=== PATIENT | female | born 1955 | race Caucasian/White ===

== ENCOUNTER → 2017-01-09 | Outpatient (CLI) | payer BC | LOC: BMCIMAGING 09:58 | PROVIDERS: ATTEND Family Medicine | DX: M79.661 Pain in right lower leg (principal) ==

== ENCOUNTER → 2017-06-29 | Outpatient (CLI) | payer BC | LOC: FIMAGING 13:55 | PROVIDERS: ATTEND Family Medicine | DX: Z12.31 Encounter for screening mammogram for malignant neoplasm of breast (principal) | CPT/HCPCS: G0202 ==

== ENCOUNTER → 2018-01-21 | Outpatient (CLI) | payer BC ==
[~2018-01-21] MED LIST: IOPAMIDOL (ISOVUE-300) 100 ML BTL ONE
== END ==
LOC: FIMAGING 12:02
PROVIDERS: ATTEND Registered Nurse
DX: R10.11 Right upper quadrant pain (principal); R93.49 Abnormal radiologic findings on diagnostic imaging of other urinary organs
CPT/HCPCS: Q9967

== ENCOUNTER → 2018-02-03 | Outpatient (CLI) | payer BC | LOC: CIMAGING 12:30 | PROVIDERS: ATTEND Registered Nurse | DX: N88.8 Other specified noninflammatory disorders of cervix uteri (principal); Z90.711 Acquired absence of uterus with remaining cervical stump; Z79.890 Hormone replacement therapy | CPT/HCPCS: 76856-PO ==

== ENCOUNTER → 2019-02-17 | Outpatient (CLI) | payer OTHER | LOC: FIMAGING 13:45 | PROVIDERS: ATTEND Family Medicine | DX: Z12.39 Encounter for other screening for malignant neoplasm of breast (principal); Z13.820 Encounter for screening for osteoporosis; M85.89 Other specified disorders of bone density and structure, multiple sites ==